=== PATIENT | male | born 1970 | race Caucasian/White ===

== ENCOUNTER 2018-06-10 04:38 | Emergency (ER) | payer MEDICAID ==
[2018-06-10] MEDS ORDERED: Gabapentin 300 MG Cap PO ONE (05:08)
--- NOTE | 2018-06-10 05:13 | EDM.PDOC ---
ED HPI GENERAL MEDICAL PROBLEM - General Chief Complaint: Back Pain or Injury Stated Complaint: BACK PAIN Time Seen by Provider: 06/10/18 04:55 Source of Information: Reports: Patient, Old Records, RN History Limitations: Reports: No Limitations - History of Present Illness INITIAL COMMENTS - FREE TEXT/NARRATIVE: 47 yo male patient of Dr. Sung'stanley presents with about 4+ weeks of low back pain with radiation to his R thigh. Is taking ibuprofen with minimal benefit. Has seen his chiropractor without benefit. Has not been to his primary care provider at any time during this. Says he woke up with it in the beginning and it didn't bother him so much that he couldn't stand it. Starting tonight the pain is worse with lying so he is not able to sleep. Says he cannot take naproxen, codeine, acetaminophen, or Toradol. Has a remote hx of lumbar spine surgery and has "a cage" to secure that level ? L4-L5. 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) Lower Back Pain Score (Numeric/FACES): 3 - Related Data Allergies Allergy/AdvReac Type Severity Reaction Status Date / Time ketorolac tromethamine Allergy Intermediate Hives Verified 02/25/18 10:51 [From Toradol] acetaminophen [From Tylenol] Allergy Itching Verified 06/10/18 05:11 codeine Allergy Hives Verified 02/25/18 10:51 sulfamethoxazole Allergy Hives Verified 02/25/18 10:51 [From Bactrim] trimethoprim [From Bactrim] Allergy Hives Verified 02/25/18 10:51 Home Meds: Home Meds DULoxetine [Cymbalta] 20 mg PO DAILY 08/16/14 [History] Past Medical History Other Musculoskeletal History: LT cage in back Social & Family History - Tobacco Use Smoking Status *Q: Heavy Tobacco Smoker Years of Tobacco use: 30 Packs/Tins Daily: 1 - Caffeine Use Caffeine Use: Reports: Coffee, Soda - Recreational Drug Use Recreational Drug Use: No ED ROS GENERAL - Review of Systems Review Of Systems: See Below Constitutional: Reports: No Symptoms HEENT: Reports: No Symptoms Respiratory: Reports: No Symptoms Cardiovascular: Reports: No Symptoms GI/Abdominal: Reports: No Symptoms : Reports: No Symptoms. Denies: Incontinence, Urinary Retention Musculoskeletal: Reports: Back Pain (low) Skin: Reports: No Symptoms Neurological: Reports: Numbness (L thigh) Psychiatric: Reports: No Symptoms ED EXAM,LOWER BACK PAIN/INJURY - Physical Exam Exam: See Below Exam Limited By: No Limitations General Appearance: Alert, WD/WN, No Apparent Distress Eye Exam: Bilateral Eye: Normal Inspection Ears: Hearing Grossly Normal Nose: Normal Inspection, No Blood Throat/Mouth: Normal Inspection, Normal Lips, Normal Voice, No Airway Compromise Head: Atraumatic, Normocephalic Neck: Normal Inspection Respiratory/Chest: No Respiratory Distress, No Accessory Muscle Use Cardiovascular: Regular Rate, Rhythm Back Exam: Normal Inspection, Paraspinal Tenderness. No: CVA Tenderness (R), CVA Tenderness (L), Muscle Spasm, Vertebral Tenderness Extremities: Normal Inspection, Normal Range of Motion, Non-Tender, No Pedal Edema Neurological: Alert, Normal Mood/Affect, CN II-XII Intact, No Motor/Sensory Deficits, Oriented x 3. No: Straight Leg Raise (L) (negative) DTR - Lower Extremities: 0: Knee (L), 1+: Ankle (L), 2+: Knee (R), Ankle (R) Psychiatric: Normal Affect, Normal Mood Skin Exam: Warm, Dry, Intact, Normal Color, No Rash Course - Vital Signs Last Recorded V/S: Last Vital Signs Temp 35.5 C 06/10/18 04:49 Pulse 85 06/10/18 04:49 Resp 18 06/10/18 04:49 BP 153/78 H 06/10/18 04:49 Pulse Ox 99 06/10/18 04:49 - Orders/Labs/Meds Orders: Active Orders 24 hr Category Date Time Status Gabapentin [Neurontin] Med 06/10/18 05:08 Once 300 mg PO ONETIME ONE Departure - Departure Time of Disposition: 05:18 Disposition: Home, Self-Care 01 Condition: Fair Clinical Impression: Low back pain Qualifiers: Chronicity: unspecified Back pain laterality: left Sciatica presence: unspecified whether sciatica present Qualified Code(s): M54.5 - Low back pain - Discharge Information *PRESCRIPTION DRUG MONITORING PROGRAM REVIEWED*: No *COPY OF PRESCRIPTION DRUG MONITORING REPORT IN PATIENT SARANYA: No Instructions: Back Pain, Adult, [id number] Referrals: PCP,None [Primary Care Provider] - Additional Instructions: Take gabapentin as directed. Continue your ibuprofen as needed. F/U with Dr. Sung for further care. - My Orders Last 24 Hours: My Active Orders 06/10/18 05:08 Gabapentin [Neurontin] 300 mg PO ONETIME ONE - Assessment/Plan Last 24 Hours: My Active Orders 06/10/18 05:08 Gabapentin [Neurontin] 300 mg PO ONETIME ONE
[2018-06-10 05:15] VITALS: BP 153/78
== END 2018-06-10 05:33 | disposition home or self-care (01) ==
LOC: JP.ED 04:38
DX: M54.5 Low back pain (principal); F17.210 Nicotine dependence, cigarettes, uncomplicated; Z88.8 Allergy status to other drugs, medicaments and biological substances; Z79.899 Other long term (current) drug therapy
CPT/HCPCS: 99283; A9270

== ENCOUNTER 2018-10-26 18:54 | Emergency (ER) | payer MEDICAID ==
[2018-10-26 19:33] VITALS: BP 147/83
[2018-10-26] MEDS ORDERED: Tetracaine HCl/PF 0.5% 4 ML Bottle EYELF ONE (19:44)
--- NOTE | 2018-10-26 19:55 | EDM.PDOC ---
ED HPI GENERAL MEDICAL PROBLEM - General Chief Complaint: Eye Problems Stated Complaint: SOMETHING IN EYE Time Seen by Provider: 10/26/18 19:45 Source of Information: Reports: Patient History Limitations: Reports: No Limitations - History of Present Illness INITIAL COMMENTS - FREE TEXT/NARRATIVE: pt was mowing lawn and something came up into his eye. He feels like it ias under his lid. -- on the rt, Onset: Today, Sudden Duration: Hour(s): Location: Reports: Face Associated Symptoms: Reports: No Other Symptoms right eye Pain Score (Numeric/FACES): 2 - Related Data Allergies Allergy/AdvReac Type Severity Reaction Status Date / Time ketorolac tromethamine Allergy Intermediate Hives Verified 10/26/18 19:28 [From Toradol] acetaminophen [From Tylenol] Allergy Itching Verified 10/26/18 19:28 codeine Allergy Hives Verified 10/26/18 19:28 sulfamethoxazole Allergy Hives Verified 10/26/18 19:28 [From Bactrim] trimethoprim [From Bactrim] Allergy Hives Verified 10/26/18 19:28 Home Meds: Home Meds DULoxetine [Cymbalta] 60 mg PO DAILY 08/16/14 [History] Past Medical History HEENT History: Reports: Impaired Vision Respiratory History: Reports: Asthma Gastrointestinal History: Reports: Other (See Below) Other Gastrointestinal History: acid reflux. ulcers Musculoskeletal History: Reports: Back Pain, Chronic, Neck Pain, Chronic, Other (See Below) Other Musculoskeletal History: LT cage in back Neurological History: Reports: Concussion, Headaches, Chronic Psychiatric History: Reports: Anxiety, Depression - Infectious Disease History Infectious Disease History: Reports: Chicken Pox - Past Surgical History Neurological Surgical History: Reports: Discectomy, Spinal Fusion Social & Family History - Tobacco Use Smoking Status *Q: Current Every Day Smoker Years of Tobacco use: 30 Packs/Tins Daily: 2 - Caffeine Use Caffeine Use: Reports: Coffee, Soda - Recreational Drug Use Recreational Drug Use: No ED ROS GENERAL - Review of Systems Review Of Systems: See Below Constitutional: Reports: No Symptoms HEENT: Reports: Eye Pain, Other (pt feels like he has something under his eye lid. ) Respiratory: Reports: No Symptoms Cardiovascular: Reports: No Symptoms Endocrine: Reports: No Symptoms GI/Abdominal: Reports: No Symptoms : Reports: No Symptoms ED EXAM GENERAL W FULL EYE - Physical Exam Exam: See Below Text/Narrative:: pt has a painful rt eye and lid. He was mowing lawn and he felt like he got something in the eye. He feels like this is under the eye lid. Exam Limited By: No Limitations General Appearance: Alert, Anxious, Mild Distress, Other ( rt eye is very mildly injected. He has redness where he had a spider bite on the rt eye lid. tetracin drops were inserted and he did not have a foreign body but he has some superficial abrasions on the conjubtivia close to the cornea laterally. He has redness in the corner of the eyelid where he had the spider bite. ) Pupils: Normal Accommodation Ears: Normal TMs Nose: Normal Inspection Throat/Mouth: Normal Inspection Head: Atraumatic Neck: Normal Inspection Respiratory/Chest: No Respiratory Distress Cardiovascular: Regular Rate, Rhythm Course - Vital Signs Last Recorded V/S: Last Vital Signs Temp 35.9 C 10/26/18 19:33 Pulse 78 10/26/18 19:33 Resp 15 10/26/18 19:33 BP 147/83 H 10/26/18 19:33 Pulse Ox 98 10/26/18 19:33 - Orders/Labs/Meds Meds: Medications Discontinued Medications Generic Name Dose Route Start Last Admin Trade Name Freq PRN Reason Stop Dose Admin Tetracaine HCl 1 ml 10/26/18 19:44 10/26/18 19:47 Tetracaine 0.5% Steri-Unit Kathy EYELF 10/26/18 19:45 1 ml ASDIRECTED ONE Administration - Re-Assessments/Exams Free Text/Narrative Re-Assessment/Exam: 10/26/18 20:15 the eye was stained and he had a superficial abrasion on the lateral conjuntivia. Departure - Departure Time of Disposition: 20:01 Disposition: Home, Self-Care 01 Condition: Fair Clinical Impression: Corneal abrasion, right, Spider bite - Discharge Information Referrals: Jean Sung MD [Primary Care Provider] - Forms: ED Department Discharge Care Plan Goals: tobradex eye drops to rt eye tid, cool pack. Use tetracine drops tonight only. motrin 600mg q6h prn for pain, cont allergy meds.
== END 2018-10-26 20:21 | disposition home or self-care (01) ==
LOC: JP.ED 18:54
DX: S00.261A Insect bite (nonvenomous) of right eyelid and periocular area, initial encounter (principal); S05.01XA Injury of conjunctiva and corneal abrasion without foreign body, right eye, initial encounter; F17.210 Nicotine dependence, cigarettes, uncomplicated; Z88.8 Allergy status to other drugs, medicaments and biological substances; Z88.5 Allergy status to narcotic agent; Z88.1 Allergy status to other antibiotic agents; Z79.899 Other long term (current) drug therapy; X58.XXXA Exposure to other specified factors, initial encounter
CPT/HCPCS: 99283

== ENCOUNTER 2020-02-21 11:40 | Emergency (ER) | payer MEDICAID ==
[2020-02-21] MEDS ORDERED: Aspirin 81 MG Tab.Chew PO ONE (12:39)
[2020-02-21] MEDS ORDERED: Ondansetron 4 MG Tab.DIS PO ONE (12:40)
--- NOTE | 2020-02-21 12:41 | EDM.PDOC ---
ED HPI GENERAL MEDICAL PROBLEM - General Chief Complaint: Chest Pain Stated Complaint: HEART ISSUES Time Seen by Provider: 02/21/20 12:35 Source of Information: Reports: Patient, Family, RN Notes Reviewed History Limitations: Reports: No Limitations - History of Present Illness INITIAL COMMENTS - FREE TEXT/NARRATIVE: 49-year-old gentleman presents emergency department with a complaint of chest pain, he states that chest pain on and off for about 5 days has had some dizziness as well as nausea he does have a history of reflux disease at this time rates his pain 0 out of 10 no history of heart disease in himself or his immediate family he does use tobacco products - Related Data Allergies Allergy/AdvReac Type Severity Reaction Status Date / Time ketorolac tromethamine Allergy Intermediate Hives Verified 02/21/20 12:19 [From Toradol] acetaminophen [From Tylenol] Allergy Itching Verified 02/21/20 12:19 codeine Allergy Hives Verified 02/21/20 12:19 sulfamethoxazole Allergy Hives Verified 02/21/20 12:19 [From Bactrim] trimethoprim [From Bactrim] Allergy Hives Verified 02/21/20 12:19 Home Meds: Home Meds DULoxetine [Cymbalta] 60 mg PO DAILY 08/16/14 [History] Ranitidine [Zantac] 1 dose PO DAILY 02/21/20 [History] Past Medical History HEENT History: Reports: Impaired Vision Respiratory History: Reports: Asthma Gastrointestinal History: Reports: Other (See Below) Other Gastrointestinal History: acid reflux. ulcers Musculoskeletal History: Reports: Back Pain, Chronic, Neck Pain, Chronic, Other (See Below) Other Musculoskeletal History: LT cage in back Neurological History: Reports: Concussion, Headaches, Chronic Psychiatric History: Reports: Anxiety, Depression - Infectious Disease History Infectious Disease History: Reports: Chicken Pox - Past Surgical History Neurological Surgical History: Reports: Discectomy, Spinal Fusion Social & Family History - Tobacco Use Tobacco Use Status *Q: Current Every Day Tobacco User Years of Tobacco use: 37 Packs/Tins Daily: 1.5 - Caffeine Use Caffeine Use: Reports: Coffee, Soda - Recreational Drug Use Recreational Drug Use: No ED ROS GENERAL - Review of Systems Review Of Systems: See Below Constitutional: Reports: No Symptoms Respiratory: Reports: No Symptoms Cardiovascular: Reports: Chest Pain GI/Abdominal: Reports: Nausea ED EXAM, GENERAL - Physical Exam Exam: See Below Exam Limited By: No Limitations General Appearance: Alert, WD/WN, No Apparent Distress Respiratory/Chest: No Respiratory Distress, Lungs Clear, Normal Breath Sounds, No Accessory Muscle Use, Chest Non-Tender Cardiovascular: Regular Rate, Rhythm, No Murmur GI/Abdominal: Soft, Non-Tender Course - Vital Signs Last Recorded V/S: Last Vital Signs Temp 96.8 F L 02/21/20 12:30 Pulse 70 02/21/20 13:24 Resp 10 L 02/21/20 13:24 BP 152/94 H 02/21/20 13:24 Pulse Ox 98 02/21/20 13:24 - Orders/Labs/Meds Orders: Active Orders 24 hr Category Date Time Status Cardiac Monitoring [RC] .As Directed Care 02/21/20 12:39 Active EKG Documentation Completion [RC] ASDIRECTED Care 02/21/20 12:39 Active EKG 12 Lead [EK] Stat Ther 02/21/20 12:39 Ordered Labs: Laboratory Tests 02/21/20 02/21/20 Range/Units 12:54 12:54 WBC 7.5 (4.5-11.0) K/uL RBC 5.39 (4.30-5.90) M/uL Hgb 15.9 H (12.0-15.0) g/dL Hct 48.5 (40.0-54.0) % MCV 90 (80-98) fL MCH 30 (27-31) pg MCHC 33 (32-36) % Plt Count 155 (150-400) K/uL Neut % (Auto) 50 (36-66) % Lymph % (Auto) 39 (24-44) % Culberson % (Auto) 8 H (2-6) % Eos % (Auto) 2 (2-4) % Baso % (Auto) 1 (0-1) % Sodium 140 (140-148) mmol/L Potassium 3.8 (3.6-5.2) mmol/L Chloride 103 (100-108) mmol/L Carbon Dioxide 29 (21-32) mmol/L Anion Gap 7.8 (5.0-14.0) mmol/L BUN 13 (7-18) mg/dL Creatinine 1.1 (0.8-1.3) mg/dL Est Cr Clr Drug Dosing 98.16 mL/min Estimated GFR (MDRD) > 60 (>60) Glucose 100 (74-106) mg/dL Calcium 8.9 (8.5-10.1) mg/dL Total Bilirubin 0.3 (0.2-1.0) mg/dL AST 16 (15-37) U/L ALT 32 (12-78) U/L Alkaline Phosphatase 90 (46-116) U/L Troponin I < 0.017 (0.000-0.056) ng/mL Total Protein 6.9 (6.4-8.2) g/dL Albumin 3.7 (3.4-5.0) g/dL Globulin 3.2 (2.3-3.5) g/dL Albumin/Globulin Ratio 1.2 (1.2-2.2) Meds: Medications Discontinued Medications Generic Name Dose Route Start Last Admin Trade Name Freq PRN Reason Stop Dose Admin Aspirin 324 mg 02/21/20 12:39 02/21/20 12:44 Aspirin PO 02/21/20 12:40 324 mg ONETIME ONE Administration Ondansetron HCl 4 mg 02/21/20 12:40 02/21/20 12:44 Zofran Odt PO 02/21/20 12:41 4 mg ONETIME ONE Administration Departure - Departure Time of Disposition: 13:59 Disposition: Home, Self-Care 01 Condition: Fair Clinical Impression: Atypical chest pain Instructions: Nonspecific Chest Pain, Adult, [id number] Referrals: Jean Sung MD [Primary Care Provider] - Forms: ED Department Discharge Additional Instructions: Try your Zantac twice a day and follow-up with Dr. Sung in the next 3 to 5 days for reevaluation call return to the emergency department worsening of symptoms Sepsis Event Note (ED) - Evaluation Sepsis Screening Result: No Definite Risk - Focused Exam Vital Signs: Vital Signs Temp Pulse Resp BP Pulse Ox 02/21/20 13:24 70 10 L 152/94 H 98 02/21/20 13:17 81 12 163/103 H 97 02/21/20 12:30 96.8 F L 76 9 L 160/98 H 99 - My Orders Last 24 Hours: My Active Orders 02/21/20 12:39 Cardiac Monitoring [RC] .As Directed EKG Documentation Completion [RC] ASDIRECTED EKG 12 Lead [EK] Stat - Assessment/Plan Last 24 Hours: My Active Orders 02/21/20 12:39 Cardiac Monitoring [RC] .As Directed EKG Documentation Completion [RC] ASDIRECTED EKG 12 Lead [EK] Stat Plan: Assessment Acuity = acute Site and laterality = chest pain atypical Etiology = probable underlying gastroesophageal reflux disease Manifestations = none Location of injury = Home Lab values = CBC, CMP unremarkable remained chest pain-free while in the ED troponin was negative EKG shows no acute process chest x-ray no acute process Plan I did review lab work CT scan results with him he is going to try Zantac twice a day and then follow-up with his primary care for further evaluation This note was dictated using [employer] voice recognition software please call with any questions on syntax or grammar.
[2020-02-21 13:26] VITALS: BP 152/94; PULSE 70
--- NOTE | 2020-02-21 13:54 | CR ---
CHEST: 2 view CLINICAL HISTORY:Chest pain COMPARISON:2006 FINDINGS: The heart size, pulmonary vascularity and hilar structures are normal. No infiltrate effusion or pneumothorax is seen. IMPRESSION: No acute cardiopulmonary process.
== END 2020-02-21 14:10 | disposition home or self-care (01) ==
LOC: JP.ED 11:40
DX: R07.89 Other chest pain (principal); J45.909 Unspecified asthma, uncomplicated; K21.9 Gastro-esophageal reflux disease without esophagitis; F41.9 Anxiety disorder, unspecified; F32.9 Major depressive disorder, single episode, unspecified; F17.210 Nicotine dependence, cigarettes, uncomplicated; Z88.6 Allergy status to analgesic agent; Z88.5 Allergy status to narcotic agent; Z88.2 Allergy status to sulfonamides; Z88.1 Allergy status to other antibiotic agents; Z79.899 Other long term (current) drug therapy
CPT/HCPCS: 36415; 71046; 80053; 84484; 85025; 93005; 93010; 99285; A9270

== ENCOUNTER 2020-12-17 07:49 | Emergency (ER) | payer MEDICAID ==
[2020-12-17 08:06] VITALS: BP 156/94; PULSE 76
[2020-12-17] MEDS ORDERED: diphenhydrAMINE 50 MG/ML SDV IVPUSH ONE (08:17)
[2020-12-17] MEDS ORDERED: Prochlorperazine 10 MG/2 ML SDV IVPUSH ONE (08:17)
[2020-12-17] MEDS ORDERED: Sodium Chloride 0.9% 10 ML Syringe FLUSH PRN (08:17)
[2020-12-17] MEDS ORDERED: Haloperidol Lactate 5 MG/ML SDV IVPUSH ONE (08:19)
--- NOTE | 2020-12-17 08:23 | EDM.PDOC ---
ED HPI GENERAL MEDICAL PROBLEM - General Chief Complaint: Headache Stated Complaint: MIGRAINE 7 DAYS Time Seen by Provider: 12/17/20 08:12 Source of Information: Reports: Patient, RN Notes Reviewed History Limitations: Reports: No Limitations - History of Present Illness INITIAL COMMENTS - FREE TEXT/NARRATIVE: 50-year-old gentleman presents emergency department day complaint of migraine headache he states he has been dealing with this migraine for about a week its worse at night then during the day it is predominantly on the right side he does have light sensitivity some nausea sound sensitivity. He states has had migraines for several years he has not tried any of the prophylactic medication he did try Imitrex 1 time however he states it made the headache worse also of note he has an allergy to NSAIDs and to acetaminophen Right Headache Pain Score (Numeric/FACES): 2 - Related Data Allergies Allergy/AdvReac Type Severity Reaction Status Date / Time ketorolac tromethamine Allergy Intermediate Hives Verified 12/17/20 08:07 [From Toradol] acetaminophen [From Tylenol] Allergy Itching Verified 12/17/20 08:07 codeine Allergy Hives Verified 12/17/20 08:07 sulfamethoxazole Allergy Hives Verified 12/17/20 08:07 [From Bactrim] trimethoprim [From Bactrim] Allergy Hives Verified 12/17/20 08:07 Home Meds: Home Meds DULoxetine [Cymbalta] 60 mg PO DAILY 08/16/14 [History] Past Medical History HEENT History: Reports: Impaired Vision Respiratory History: Reports: Asthma Gastrointestinal History: Reports: Other (See Below) Other Gastrointestinal History: acid reflux. ulcers Musculoskeletal History: Reports: Back Pain, Chronic, Neck Pain, Chronic, Other (See Below) Other Musculoskeletal History: LT cage in back Neurological History: Reports: Concussion, Headaches, Chronic Psychiatric History: Reports: Anxiety, Depression - Infectious Disease History Infectious Disease History: Reports: Chicken Pox - Past Surgical History Neurological Surgical History: Reports: Discectomy, Spinal Fusion Social & Family History - Tobacco Use Tobacco Use Status *Q: Heavy Tobacco User Years of Tobacco use: 40 Packs/Tins Daily: 1.5 - Caffeine Use Caffeine Use: Reports: Coffee, Soda - Recreational Drug Use Recreational Drug Use: No ED ROS GENERAL - Review of Systems Review Of Systems: See Below Constitutional: Reports: No Symptoms HEENT: Reports: Eye Pain Respiratory: Reports: No Symptoms Cardiovascular: Reports: No Symptoms GI/Abdominal: Reports: Nausea - Physical Exam Exam: See Below Exam Limited By: No Limitations General Appearance: Alert, WD/WN, No Apparent Distress Eye Exam: Bilateral Eye: EOMI, Normal Fundi, Normal Inspection, PERRL Respiratory/Chest: No Respiratory Distress Course - Vital Signs Last Recorded V/S: Last Vital Signs Temp 97.2 F 12/17/20 08:05 Pulse 76 12/17/20 08:05 Resp 16 12/17/20 08:05 BP 156/94 H 12/17/20 08:05 Pulse Ox 99 12/17/20 08:05 - Orders/Labs/Meds Orders: Active Orders 24 hr Category Date Time Status Peripheral IV Care [RC] . DIRECTED Care 12/17/20 08:17 Active Sodium Chloride 0.9% [Normal Saline] 1,000 ml Med 12/17/20 08:30 Active IV ASDIRECTED Sodium Chloride 0.9% [Saline Flush] Med 12/17/20 08:17 Active 10 ml FLUSH ASDIRECTED PRN Peripheral IV Insertion Adult [OM.PC] Urgent Oth 12/17/20 08:17 Ordered Medication Orders Sodium Chloride (Normal Saline) 1,000 mls @ 999 mls/hr IV ASDIRECTED CALLY Last Admin: 12/17/20 08:36 Dose: 999 mls/hr Documented by: CRISSY Sodium Chloride (Sodium Chloride 0.9% 10 Ml Syringe) 10 ml FLUSH ASDIRECTED PRN PRN Reason: Keep Vein Open Last Admin: 12/17/20 08:42 Dose: 10 ml Documented by: CRISSY Meds: Medications Generic Name Dose Route Start Last Admin Trade Name Freq PRN Reason Stop Dose Admin Sodium Chloride 1,000 mls @ 999 mls/hr 12/17/20 08:30 12/17/20 08:36 Normal Saline IV 999 mls/hr ASDIRECTED CALLY Administration Sodium Chloride 10 ml 12/17/20 08:17 12/17/20 08:42 Sodium Chloride 0.9% 10 Ml Syringe FLUSH 10 ml ASDIRECTED PRN Administration Keep Vein Open Discontinued Medications Generic Name Dose Route Start Last Admin Trade Name Freq PRN Reason Stop Dose Admin Diphenhydramine HCl 50 mg 12/17/20 08:17 12/17/20 08:42 Diphenhydramine 50 Mg/Ml Sdv IVPUSH 12/17/20 08:18 50 mg ONETIME ONE Administration Haloperidol Lactate 5 mg 12/17/20 08:19 12/17/20 08:46 Haloperidol Lactate 5 Mg/Ml Sdv IVPUSH 12/17/20 08:20 5 mg ONETIME ONE Administration Prochlorperazine Edisylate 5 mg 12/17/20 08:17 12/17/20 08:45 Prochlorperazine 10 Mg/2 Ml Sdv IVPUSH 12/17/20 08:18 5 mg ONETIME ONE Administration Departure - Departure Time of Disposition: 09:33 Disposition: Home, Self-Care 01 Condition: Fair Clinical Impression: Migraine - Discharge Information Instructions: Pain Medicine Instructions, [id number], Migraine Headache, [id number] Referrals: Jean Sung MD [Primary Care Provider] - Forms: ED Department Discharge Additional Instructions: Continue with your regular medications please followup with your primary care provider in 5-7 days if not better, please call return to the emergency department with worsening of symptoms., Sepsis Event Note (ED) - Evaluation Sepsis Screening Result: No Definite Risk - Focused Exam Vital Signs: Vital Signs Temp Pulse Resp BP Pulse Ox 12/17/20 08:05 97.2 F 76 16 156/94 H 99 - My Orders Last 24 Hours: My Active Orders 12/17/20 08:17 Peripheral IV Care [RC] . DIRECTED Sodium Chloride 0.9% [Saline Flush] 10 ml FLUSH ASDIRECTED PRN Peripheral IV Insertion Adult [OM.PC] Urgent 12/17/20 08:30 Sodium Chloride 0.9% [Normal Saline] 1,000 ml IV ASDIRECTED - Assessment/Plan Last 24 Hours: My Active Orders 12/17/20 08:17 Peripheral IV Care [RC] . DIRECTED Sodium Chloride 0.9% [Saline Flush] 10 ml FLUSH ASDIRECTED PRN Peripheral IV Insertion Adult [OM.PC] Urgent 12/17/20 08:30 Sodium Chloride 0.9% [Normal Saline] 1,000 ml IV ASDIRECTED Plan: Assessment Acuity = acute Site and laterality = migraine Etiology = unknown Manifestations = none Location of injury = Home Lab values = none Plan Good resolution of headache combination Compazine, Benadryl and Haldol fasting to follow-up with his primary care for further evaluation in migraine prophylaxis This note was dictated using [employer] voice recognition software please call with any questions on syntax or grammar.
[2020-12-17] MEDS ORDERED: Sodium Chloride 0.9% 1,000 ML IV SCH (08:30)
== END 2020-12-17 09:40 | disposition home or self-care (01) ==
LOC: JP.ED 07:49
DX: G43.909 Migraine, unspecified, not intractable, without status migrainosus (principal); Z72.0 Tobacco use; Z88.6 Allergy status to analgesic agent; Z88.5 Allergy status to narcotic agent; Z88.2 Allergy status to sulfonamides; Z88.8 Allergy status to other drugs, medicaments and biological substances
CPT/HCPCS: 96374; 96375; 99283; J0780; J1200; J1630; J7030

== ENCOUNTER 2021-01-27 13:26 | Emergency (ER) | payer MEDICAID ==
[2021-01-27] MEDS ORDERED: Sodium Chloride 0.9% 10 ML Syringe FLUSH PRN (13:48)
[2021-01-27] MEDS ORDERED: Aspirin 81 MG Tab.Chew PO ONE (13:48)
--- NOTE | 2021-01-27 13:52 | EDM.PDOC ---
ED HPI GENERAL MEDICAL PROBLEM - General Chief Complaint: Chest Pain Stated Complaint: SEVERE CHEST PAIN, DIZZY, HEART POUNDING Time Seen by Provider: 01/27/21 13:41 Source of Information: Reports: Patient, Family, RN Notes Reviewed - History of Present Illness INITIAL COMMENTS - FREE TEXT/NARRATIVE: Braulio presents today for complaints of chest pain today that has been more painful today then the past 3 weeks. He reports he has had feeling of palpitations since he started use or propanolol for his migraines. 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 He denies any fever, chills, nausea, vomiting, change in bowel/bladder or other concerns. He denies any risk for COVID, declines testing today. - Related Data Allergies Allergy/AdvReac Type Severity Reaction Status Date / Time ketorolac tromethamine Allergy Intermediate Hives Verified 12/17/20 08:07 [From Toradol] acetaminophen [From Tylenol] Allergy Itching Verified 12/17/20 08:07 codeine Allergy Hives Verified 12/17/20 08:07 sulfamethoxazole Allergy Hives Verified 12/17/20 08:07 [From Bactrim] trimethoprim [From Bactrim] Allergy Hives Verified 12/17/20 08:07 Home Meds: Home Meds DULoxetine [Cymbalta] 60 mg PO DAILY 08/16/14 [History] Propranolol [Inderal] 10 mg PO BID 01/27/21 [History] Past Medical History HEENT History: Reports: Impaired Vision Respiratory History: Reports: Asthma Gastrointestinal History: Reports: Other (See Below) Other Gastrointestinal History: acid reflux. ulcers Genitourinary History: Reports: Renal Calculus Musculoskeletal History: Reports: Back Pain, Chronic, Neck Pain, Chronic, Other (See Below) Other Musculoskeletal History: LT cage in back Neurological History: Reports: Concussion, Headaches, Chronic, Migraines Psychiatric History: Reports: Anxiety, Depression - Infectious Disease History Infectious Disease History: Reports: Chicken Pox - Past Surgical History HEENT Surgical History: Reports: None Neurological Surgical History: Reports: Discectomy, Spinal Fusion Social & Family History - Tobacco Use Tobacco Use Status *Q: Current Every Day Tobacco User Years of Tobacco use: 30 Packs/Tins Daily: 1 - Caffeine Use Caffeine Use: Reports: Coffee, Soda - Recreational Drug Use Recreational Drug Use: No ED ROS GENERAL - Review of Systems Review Of Systems: See Below Constitutional: Reports: No Symptoms HEENT: Reports: Eye Pain (complains of bilateral eye pain with feeling of epigastric/chest pain with trouble focusing at times. Denies sensation or pain at this time. ) Respiratory: Reports: No Symptoms Cardiovascular: Reports: Chest Pain, Palpitations. Denies: Blood Pressure Problem, Claudication, Dyspnea on Exertion, Edema, Lightheadedness, Orthopnea, PND, Syncope Endocrine: Reports: No Symptoms GI/Abdominal: Reports: Abdominal Pain (epigatric pain off and on). Denies: Black Stool, Bloody Stool, Constipation, Diarrhea, Difficulty Swallowing, Nausea, Vomiting : Reports: No Symptoms Musculoskeletal: Reports: Neck Pain (posterior neck at base of skull) Skin: Reports: No Symptoms Neurological: Reports: Headache (off and on migraines with recent start of propanolol 20mg PO BID as preventative started on 01/01/2021) Psychiatric: Reports: Anxiety Hematologic/Lymphatic: Reports: No Symptoms Immunologic: Reports: No Symptoms ED EXAM, GENERAL - Physical Exam Exam: See Below Exam Limited By: No Limitations General Appearance: Alert, WD/WN, Anxious, Other (Denies chest pain) Eye Exam: Bilateral Eye: EOMI, Normal Inspection, PERRL Ears: Normal External Exam, Normal Canal, Hearing Grossly Normal, Normal TMs Throat/Mouth: Normal Inspection, Normal Lips, Normal Gums, Normal Oropharynx, Normal Voice, No Airway Compromise, Other (dry mucus membranes, no teeth present, no dentures present) Head: Atraumatic, Normocephalic Neck: Normal Inspection, Supple, Full Range of Motion, Tender Lateral Respiratory/Chest: No Respiratory Distress, Lungs Clear, Normal Breath Sounds, No Accessory Muscle Use, Chest Non-Tender. No: Crackles, Rales, Rhonchi, Wheezing, Stridor, Pleural Rub Cardiovascular: Normal Peripheral Pulses, Regular Rate, Rhythm, No Edema, No Gallop, No Murmur, No Rub Peripheral Pulses: 4+: Radial (L), Radial (R) GI/Abdominal: Normal Bowel Sounds, Soft, Non-Tender, No Organomegaly, No Distention, No Abnormal Bruit, No Mass. No: Guarding, Rigid, Rebound, Tender (Male) Exam: Deferred Rectal (Males) Exam: Deferred Back Exam: Normal Inspection, Full Range of Motion Extremities: Normal Inspection, Normal Range of Motion, Non-Tender, No Pedal Edema, Normal Capillary Refill Neurological: Alert, Oriented, CN II-XII Intact, Normal Cognition, Normal Gait, Normal Reflexes, No Motor/Sensory Deficits Psychiatric: Normal Affect, Normal Mood Skin Exam: Warm, Dry, Intact, Normal Color, No Rash Lymphatic: No Adenopathy #1 Interpretation EKG Date: 01/27/21 Time: 13:38 Rhythm: NSR Rate (Beats/Min): 98 Mongo: Normal P-Wave: Present QRS: Normal ST-T: Normal QT: Normal Course - Vital Signs Last Recorded V/S: Last Vital Signs Temp 36.4 C 01/27/21 13:41 Pulse 84 01/27/21 16:00 Resp 13 01/27/21 16:00 BP 170/97 H 01/27/21 16:00 Pulse Ox 97 01/27/21 16:00 - Orders/Labs/Meds Orders: Active Orders 24 hr Category Date Time Status Chest 1V Frontal [CR] Stat Exams 01/27/21 13:48 Taken Sodium Chloride 0.9% [Saline Flush] Med 01/27/21 13:48 Active 10 ml FLUSH ASDIRECTED PRN Saline Lock Insert [OM.PC] Routine Oth 01/27/21 13:48 Ordered EKG 12 Lead [EK] Routine Ther 01/27/21 13:48 Ordered Medication Orders Sodium Chloride (Sodium Chloride 0.9% 10 Ml Syringe) 10 ml FLUSH ASDIRECTED PRN PRN Reason: Keep Vein Open Last Admin: 01/27/21 13:57 Dose: 10 ml Documented by: MARINA Labs: Laboratory Tests 01/27/21 01/27/21 01/27/21 Range/Units 14:18 14:18 14:18 WBC 9.4 (4.5-11.0) K/uL RBC 5.10 (4.30-5.90) M/uL Hgb 16.3 H (12.0-15.0) g/dL Hct 45.4 (40.0-54.0) % MCV 89 (80-98) fL MCH 32 H (27-31) pg MCHC 36 (32-36) % Plt Count 152 (150-400) K/uL Neut % (Auto) 56.6 (36-66) % Lymph % (Auto) 32.9 (24-44) % [place]haw % (Auto) 8.6 H (2-6) % Eos % (Auto) 1.7 L (2-4) % Baso % (Auto) 0.2 (0-1) % PT 10.1 (9.2-10.6) sec INR 1.0 APTT 25.4 (21.4-31.8) sec Sodium 143 (140-148) mmol/L Potassium 4.4 (3.6-5.2) mmol/L Chloride 107 (100-108) mmol/L Carbon Dioxide 29 (21-32) mmol/L Anion Gap 7.0 (5.0-14.0) mmol/L BUN 13 (7-18) mg/dL Creatinine 1.2 (0.8-1.3) mg/dL Est Cr Clr Drug Dosing 91.42 mL/min Estimated GFR (MDRD) > 60 (>60) Glucose 92 (74-106) mg/dL Calcium 8.9 (8.5-10.1) mg/dL Total Bilirubin 0.5 D (0.2-1.0) mg/dL AST 16 (15-37) U/L ALT 29 (12-78) U/L Alkaline Phosphatase 97 (46-116) U/L Troponin I < 0.017 (0.000-0.056) ng/mL Total Protein 6.5 (6.4-8.2) g/dL Albumin 3.7 (3.4-5.0) g/dL Globulin 2.8 (2.3-3.5) g/dL Albumin/Globulin Ratio 1.3 (1.2-2.2) Amylase 39 (25-115) U/L Lipase 77 (73-393) U/L 01/27/21 Range/Units 16:22 WBC (4.5-11.0) K/uL RBC (4.30-5.90) M/uL Hgb (12.0-15.0) g/dL Hct (40.0-54.0) % MCV (80-98) fL MCH (27-31) pg MCHC (32-36) % Plt Count (150-400) K/uL Neut % (Auto) (36-66) % Lymph % (Auto) (24-44) % K[place]haw % (Auto) (2-6) % Eos % (Auto) (2-4) % Baso % (Auto) (0-1) % PT (9.2-10.6) sec INR APTT (21.4-31.8) sec Sodium (140-148) mmol/L Potassium (3.6-5.2) mmol/L Chloride (100-108) mmol/L Carbon Dioxide (21-32) mmol/L Anion Gap (5.0-14.0) mmol/L BUN (7-18) mg/dL Creatinine (0.8-1.3) mg/dL Est Cr Clr Drug Dosing mL/min Estimated GFR (MDRD) (>60) Glucose (74-106) mg/dL Calcium (8.5-10.1) mg/dL Total Bilirubin (0.2-1.0) mg/dL AST (15-37) U/L ALT (12-78) U/L Alkaline Phosphatase (46-116) U/L Troponin I < 0.017 (0.000-0.056) ng/mL Total Protein (6.4-8.2) g/dL Albumin (3.4-5.0) g/dL Globulin (2.3-3.5) g/dL Albumin/Globulin Ratio (1.2-2.2) Amylase (25-115) U/L Lipase (73-393) U/L Patient lab work reviewed, no acute findings noted. We will repeat troponin at 1620. Second troponin reviewed with patient, all his and his 's questions were answered. Importance of migraine control, management of acid reflux discussed as well as having a carbon monoxide detector in his shop to prevent carbon monoxide poisoning. Patient and his verbalize understanding. Meds: Medications Generic Name Dose Route Start Last Admin Trade Name Freq PRN Reason Stop Dose Admin Sodium Chloride 10 ml 01/27/21 13:48 01/27/21 13:57 Sodium Chloride 0.9% 10 Ml Syringe FLUSH 10 ml ASDIRECTED PRN Administration Keep Vein Open Discontinued Medications Generic Name Dose Route Start Last Admin Trade Name Freq PRN Reason Stop Dose Admin Aspirin 324 mg 01/27/21 13:48 01/27/21 13:57 Aspirin 81 Mg Tab.Chew PO 01/27/21 13:49 324 mg ONETIME ONE Administration Hydromorphone HCl 0.5 mg 01/27/21 14:32 01/27/21 14:48 Hydromorphone 0.5 Mg/0.5 Ml Syringe IVPUSH 01/27/21 14:33 Not Given ONETIME ONE Ondansetron HCl 4 mg 01/27/21 14:32 01/27/21 14:48 Ondansetron 4 Mg/2 Ml Sdv IVPUSH 01/27/21 14:33 Not Given ONETIME ONE - Radiology Interpretation Free Text/Narrative:: Chest x-ray reviewed, wet read with no acute findings. 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 01/27/21 15:00 Patient reports headache to top of head, denies chest pain. 01/27/21 16:55 Discussed lab work with patient and his , no acute findings. Migraines controlled with use or propanolol, patient denies chest pain entire stay while in ER. Migraine pain improved. He will be discharged to home with use of hydroxyzine and follow up with Dr. Sung. Departure - Departure Time of Disposition: 16:57 Disposition: Home, Self-Care 01 Condition: Good Clinical Impression: Acid reflux, Anxiety, Atypical chest pain Instructions: Gastroesophageal Reflux Disease, Adult, [id number], Angina, [id number] Referrals: Jean Sung MD [Primary Care Provider] - Forms: ED Department Discharge Additional Instructions: You have been evaluated and treated for atypical chest pain, acid reflux and anxiety. Cardiac work up is negative with no acute findings on EKG, chest x-ray and troponin negative x 2. Migraines currently controlled with use of propanolol 20mg twice per day. Do not stop propanolol. Take maalox as needed for acid reflux/indigestion. Take hydroxyzine 25mg by mouth up to 4 times a day as needed for anxiety - this can make sleepy. Follow up with Dr. Sung tomorrow for an appointment and recheck in the next 7 to 10 days. Return to the emergency room any worsening, issues or concerns. Sepsis Event Note (ED) - Evaluation Sepsis Screening Result: No Definite Risk - Focused Exam Vital Signs: Vital Signs Temp Pulse Resp BP Pulse Ox 01/27/21 16:00 84 13 170/97 H 97 01/27/21 15:20 89 12 165/97 H 97 01/27/21 14:32 82 12 149/95 H 95 01/27/21 13:41 36.4 C 104 H 16 188/107 H 96 - My Orders Last 24 Hours: My Active Orders 01/27/21 13:48 Chest 1V Frontal [CR] Stat Sodium Chloride 0.9% [Saline Flush] 10 ml FLUSH ASDIRECTED PRN Saline Lock Insert [OM.PC] Routine EKG 12 Lead [EK] Routine - Assessment/Plan Last 24 Hours: My Active Orders 01/27/21 13:48 Chest 1V Frontal [CR] Stat Sodium Chloride 0.9% [Saline Flush] 10 ml FLUSH ASDIRECTED PRN Saline Lock Insert [OM.PC] Routine EKG 12 Lead [EK] Routine Assessment:: Acid reflux, Anxiety, Atypical chest pain History of migraines and acid reflux Plan: valuated and treated for atypical chest pain, acid reflux and anxiety. Cardiac work up is negative with no acute findings on EKG, chest x-ray and troponin negative x 2. Migraines currently controlled with use of propanolol 20mg twice per day. Do not stop propanolol. Take maalox as needed for acid reflux/indigestion. Take hydroxyzine 25mg by mouth up to 4 times a day as needed for anxiety - this can make sleepy. Follow up with Dr. Sung tomorrow for an appointment and recheck in the next 7 to 10 days. Return to the emergency room any worsening, issues or concerns.
[2021-01-27] MEDS ORDERED: HYDROmorphone 0.5 MG/0.5 ML Syringe IVPUSH ONE (14:32)
[2021-01-27] MEDS ORDERED: Ondansetron 4 MG/2 ML SDV IVPUSH ONE (14:32)
[2021-01-27 16:25] VITALS: BP 170/97; PULSE 84
--- NOTE | 2021-01-28 09:43 | CR ---
CHEST: Portable 01/27/2021 at 2:12 PM CLINICAL HISTORY:Chest pain COMPARISON:2019 FINDINGS: The heart size, pulmonary vascularity and hilar structures are normal. No infiltrate effusion or pneumothorax is seen. IMPRESSION: No acute cardiopulmonary process.
== END 2021-01-27 17:27 | disposition home or self-care (01) ==
LOC: JP.ED 13:26
DX: K21.9 Gastro-esophageal reflux disease without esophagitis (principal); F41.9 Anxiety disorder, unspecified; J45.909 Unspecified asthma, uncomplicated; Z72.0 Tobacco use; Z88.5 Allergy status to narcotic agent; Z88.6 Allergy status to analgesic agent; Z88.2 Allergy status to sulfonamides
CPT/HCPCS: 36415; 71045; 80053; 82150; 83690; 84484; 85025; 85610; 85730; 93005; 99285; A9270

== ENCOUNTER 2024-11-18 18:08 | Emergency (ER) | payer MEDICAID ==
[2024-11-18 18:45] VITALS: BP 142/99; PULSE 99
[2024-11-18] MEDS: LORazepam 2 MG/ML SDV IM ONE (20:13)
[2024-11-18 20:16] LABS: BASOPHILS ABSOLUTE AUTO 0.04 K/uL (0.00-0.10); BASOPHILS PERCENT AUTO 0.4 % (0.1-1.3); EOSINOPHILS ABSOLUTE AUTO 0.10 K/uL (0.00-0.40); EOSINOPHILS PERCENT AUTO 0.9 % (0.0-5.4); IMMATURE GRAN ABSOLUTE AUTO 0.05 K/uL (0.00-0.23); IMMATURE GRAN PERCENT AUTO 0.4 % (0.0-0.7); LYMPHOCYTES ABSOLUTE AUTO 2.66 K/uL (0.8-3.3); LYMPHOCYTES PERCENT AUTO 23.4 % (11.4-47.7); MONOCYTES ABSOLUTE AUTO 0.82 K/uL (0.20-0.90); MONOCYTES PERCENT AUTO 7.2 % (3.3-12.6); NEUTROPHILS ABSOLUTE AUTO 7.68 K/uL (1.0-7.6); NEUTROPHILS PERCENT AUTO 67.7 % (40.0-78.1); PLATELET COUNT,PLT 173 K/uL (130-375); RED BLOOD CELL COUNT 5.60 M/uL (4.14-5.76); WHITE BLOOD CELL COUNT,WBC 11.4 K/uL (3.2-11.0)
[2024-11-18 20:32] LABS: BLOOD UREA NITROGEN,BUN 14.0 mg/dL (7-18); CARBON DIOXIDE,CO2 30.0 mmol/L (21-32); CHLORIDE,CL 107.0 mmol/L (100-108); CREATININE 1.1 mg/dL (0.8-1.3); EST CRCL DRUG DOSING (CG) 94.67 mL/min; ESTIMATED GFR 80.0 mL/min (>60); GLUCOSE RANDOM 89.0 mg/dL (74-106); POTASSIUM,K 3.8 mmol/L (3.6-5.2); SODIUM,NA 146.0 mmol/L (140-148)
== END 2024-11-18 21:24 | disposition home or self-care (01) ==
LOC: JP.ED 18:08
DX: F41.0 Panic disorder [episodic paroxysmal anxiety] (principal); Z88.5 Allergy status to narcotic agent; Z88.8 Allergy status to other drugs, medicaments and biological substances; Z88.2 Allergy status to sulfonamides; Z79.899 Other long term (current) drug therapy
CPT/HCPCS: 36415; 80048; 83735; 85025; 96372; 99283; J2060